=== PATIENT | female | born 1985 | race Caucasian/White ===

== ENCOUNTER 2019-02-03 17:20 | Emergency (ER) | payer SELFPAY ==
[~2019-02-03] VITALS: Ht 149.9 cm; Wt 82.0 kg
[2019-02-03] MEDS ORDERED: LIDOCAINE 1%/EPI 1:100,000 10 ML VIAL IJ ONE ×2 (19:00→19:45)
[2019-02-03] MEDS ORDERED: BACITRACIN ZINC OINT UDPKT TOP ONE (19:00)
[2019-02-03 19:28] VITALS: BP 102/56
[2019-02-03] MEDS ORDERED: BACITRACIN 15GM TUBE TOP NR (19:45)
== END 2019-02-03 20:32 | disposition home or self-care (01) ==
LOC: ER 17:20
DX: N61.1 Abscess of the breast and nipple (principal); F41.9 Anxiety disorder, unspecified; F32.9 Major depressive disorder, single episode, unspecified; F79 Unspecified intellectual disabilities
CPT/HCPCS: 99283; J3490

== ENCOUNTER 2022-06-24 18:31 | Emergency (ER) | payer MEDICARE, OTHER ==
[~2022-06-24] VITALS: Ht 149.9 cm; Wt 87.0 kg
[2022-06-24 19:29] LABS: BASOPHILS % 0.7 % (0.0-2.0); EOSINOPHILS % 1.7 % (0.0-5.0); HEMATOCRIT. 36.7 % (36.0-48.0); HEMOGLOBIN. 12.6 g/dL (12.0-16.0); LYMPHOCYTES % 45.6 % (20.0-50.0); MEAN CORPUSCULAR HEMOGLOBIN 30.8 pg (28.0-32.0); MEAN PLATELET VOLUME 7.2 fl (7.4-10.4); MONOCYTES % 6.1 % (2.0-8.0); NEUTROPHILS % 45.9 % (40.0-76.0); PLATELET 274 x1000/uL (130-400); RED BLOOD CELL COUNT 4.08 mill/uL (4.2-5.4); RED CELL DISTRIBUTION WIDTH 12.5 % (11.6-14.6)
[2022-06-24 19:40] LABS: CHLORIDE 102 mEq/L (98-107)
[2022-06-24 19:43] LABS: ETHANOL BLOOD < 10 mg/dL
[2022-06-25 01:50] LABS: CLARITY URINE CLEAR (CLEAR); COLOR URINE ORANGE (YELLOW); KETONES URINE 2+ (NEGATIVE); LEUKOCYTE ESTERASE URINE NEGATIVE (NEGATIVE); NITRITE URINE NEGATIVE (NEGATIVE); OCCULT BLOOD URINE 3+ (NEGATIVE); PROTEIN URINE TRACE (NEGATIVE); SPECIFIC GRAVITY URINE 1.028 (1.005-1.030)
[2022-06-25 02:14] LABS: *AMPHETAMINES SCREEN URINE NEGATIVE (NEGATIVE); *BARBITURATES SCREEN URINE NEGATIVE (NEGATIVE); *BENZODIAZEPINES SCREEN URINE NEGATIVE (NEGATIVE); *COCAINE SCREEN URINE NEGATIVE (NEGATIVE); CANNABINOID URINE SCREEN NEGATIVE (NEGATIVE); METHADONE URINE SCREEN NEGATIVE (NEGATIVE); OPIATES URINE SCREEN NEGATIVE (NEGATIVE); PHENCYCLIDINE URINE SCREEN NEGATIVE (NEGATIVE)
[2022-06-25] MEDS ORDERED: ACETAMINOPHEN 325MG TABLET PO ONE (07:45)
[2022-06-25] MEDS: INSULIN REGULAR (HUMULIN R) 300UNITS/3ML VIAL SUBCUT SCH ×3 (08:55→17:00)
[2022-06-25] MEDS: CITALOPRAM HYDROBROMIDE 10MG TABLET PO SCH (14:53)
[2022-06-25] MEDS: LAMOTRIGINE 25MG TABLET PO SCH (14:54)
[2022-06-25] MEDS ORDERED: TRAZODONE HCL 50MG TABLET PO SCH (21:00)
[2022-06-25] MEDS: DIVALPROEX SODIUM 500MG DR TABLET PO SCH (21:15)
[2022-06-25] MEDS: QUETIAPINE FUMARATE 50MG TABLET PO SCH (21:15)
[2022-06-26] MEDS: QUETIAPINE FUMARATE 50MG TABLET PO SCH (08:27)
[2022-06-26] MEDS: LAMOTRIGINE 25MG TABLET PO SCH (08:27)
[2022-06-26] MEDS: DIVALPROEX SODIUM 500MG DR TABLET PO SCH (08:27)
[2022-06-26] MEDS: CITALOPRAM HYDROBROMIDE 10MG TABLET PO SCH (08:27)
[2022-06-26] MEDS: INSULIN REGULAR (HUMULIN R) 300UNITS/3ML VIAL SUBCUT SCH (08:28)
[2022-06-26 10:11] VITALS: BP 124/72
== END 2022-06-26 10:36 | disposition short-term general hospital (02) ==
LOC: ER 18:31
DX: R45.851 Suicidal ideations (principal); F32.9 Major depressive disorder, single episode, unspecified; F41.9 Anxiety disorder, unspecified; E11.9 Type 2 diabetes mellitus without complications; F43.10 Post-traumatic stress disorder, unspecified; Z20.822 Contact with and (suspected) exposure to COVID-19
CPT/HCPCS: 36415; 80053; 80305; 80320; 81001; 81025; 82962; 85025; 87426; 99285; C9803; G0480

== ENCOUNTER 2022-09-05 13:09 | Emergency (ER) | payer MEDICAID, MEDICARE, OTHER ==
[~2022-09-05] VITALS: Ht 152.4 cm; Wt 91.0 kg
[2022-09-05 13:12] VITALS: BP 122/80
[2022-09-05] MEDS ORDERED: LIDO700A15 TP (15:07)
[2022-09-05] MEDS ORDERED: ACET-2708 MT (15:07)
[2022-09-05] MEDS ORDERED: ACETAMINOPHEN 325MG TABLET PO ONE (15:15)
== END 2022-09-05 15:35 | disposition home or self-care (01) ==
LOC: ER 13:31
DX: M25.511 Pain in right shoulder (principal); F41.9 Anxiety disorder, unspecified; F32.A Depression, unspecified; E11.9 Type 2 diabetes mellitus without complications
CPT/HCPCS: 73030; 82962; 99283

== ENCOUNTER 2024-09-26 21:53 | Emergency (ER) | payer MEDICARE, MEDICAID ==
[~2024-09-26] VITALS: Ht 149.9 cm; Wt 91.0 kg
[~2024-09-26 21:53] MED LIST: ACET-2708 MT; LIDO700A15 TP
[2024-09-26 22:08] VITALS: O2SAT 98
[2024-09-26 22:13] VITALS: O2SAT 98
[2024-09-26 23:59] VITALS: BP 105/64; PULSE 52; RESP 18
[2024-09-26] MEDS: KETOROLAC 30MG/ML VIAL IM ONE (23:59)
[2024-09-27] MEDS: BACITRACIN ZINC OINT UDPKT TOP ONE
[2024-09-27] MEDS: LIDOCAINE HCL/PF 1% 10 MG/ML 5ML VIAL INFIL ONE (00:05)
== END 2024-09-27 00:31 | disposition home or self-care (01) ==
LOC: ER 21:53
DX: N61.1 Abscess of the breast and nipple (principal); E11.9 Type 2 diabetes mellitus without complications; F41.9 Anxiety disorder, unspecified; Z79.899 Other long term (current) drug therapy
CPT/HCPCS: 10060; 99282; J1885